=== PATIENT | female | born 1940 | race Asian ===

== ENCOUNTER 2020-01-15 22:44 | Inpatient (IN) | payer MEDICARE, OTHER ==
[~2020-01-15] VITALS: Ht 152.4 cm; Wt 67.6 kg
[2020-01-16] VITALS (8 sets, daily range): BP systolic 90–146; BP diastolic 46–65
[2020-01-16] MEDS ORDERED: NITROGLYCERIN OINT 1GM/INCH UDPKT TD ONE
[2020-01-16] MEDS ORDERED: ASPIRIN 81MG TABLET PO ONE
[2020-01-16 00:01] LABS: HEMATOCRIT. 35.7 % (36.0-48.0); LYMPHOCYTES % 19.6 % (20.0-50.0); MEAN CORPUSCULAR HEMOGLOBIN 29.2 pg (28.0-32.0); MEAN CORPUSCULAR VOLUME 87.4 fL (81.0-99.0); MEAN PLATELET VOLUME 7.3 fl (7.4-10.4); MONOCYTES % 7.5 % (2.0-8.0); NEUTROPHILS % 68.9 % (40.0-76.0); PLATELET 250 x1000/uL (130-400); RED BLOOD CELL COUNT 4.09 mill/uL (4.2-5.4); RED CELL DISTRIBUTION WIDTH 13.9 % (11.6-14.6)
[2020-01-16 00:07] LABS: CHLORIDE 107 mEq/L (98-107)
[2020-01-16] MEDS ORDERED: MAGNESIUM/ALUMINUM HYDROXIDE/SIMETHICONE 30ML UDC PO PRN (06:15)
[2020-01-16] MEDS ORDERED: ONDANSETRON HCL 4MG/2ML INJ IV PRN (06:15)
[2020-01-16] MEDS ORDERED: GUAIFENESIN 200MG/10ML SUGAR FREE UDC PO PRN (06:15)
[2020-01-16] MEDS ORDERED: CLONIDINE 0.1MG TABLET PO PRN (06:15)
[2020-01-16] MEDS ORDERED: DOCUSATE SODIUM 100MG CAPSULE PO PRN (06:15)
[2020-01-16] MEDS ORDERED: ACETAMINOPHEN 325MG TABLET PO PRN (06:15)
[2020-01-16] MEDS: HYDROCODONE/ACETAMINOPHEN 5/325MG TABLET PO PRN ×2 (06:54→20:52)
[2020-01-16] MEDS ORDERED: DEXTROSE 50% WATER 50ML SYRINGE IV PRN (07:00)
[2020-01-16] MEDS: INSULIN LISPRO (HIGH DOSE) 100 UNITS/ML SUBCUT SCH ×4 (08:20→21:16)
[2020-01-16] MEDS ORDERED: ENOXAPARIN 40MG/0.4ML SYR SUBCUT SCH (09:00)
[2020-01-16] MEDS: BLOOD SUGAR DIAGNOSTIC STRIP TEST SCH ×4 (09:00→20:53)
[2020-01-16] MEDS: ENOXAPARIN 30MG/0.3ML SYR SUBCUT SCH (09:00)
[2020-01-16] MEDS: LISINOPRIL 10MG TABLET PO SCH (10:44)
[2020-01-16] MEDS ORDERED: [UNRECOGNIZED DRUG - CODE] MT (11:35)
[2020-01-16] MEDS ORDERED: ATOR40TA70 MT (11:35)
[2020-01-16] MEDS ORDERED: DONE10TA43 PO (11:35)
[2020-01-16] MEDS ORDERED: CYAN50003 MT (11:35)
[2020-01-16] MEDS ORDERED: LOSA100T32 PO (11:35)
[2020-01-16] MEDS ORDERED: NIFE90TA60 PO (11:35)
[2020-01-16] MEDS ORDERED: CHOL200077 MT (11:35)
[2020-01-16] MEDS ORDERED: CITA20SO2 PO (11:35)
[2020-01-16] MEDS ORDERED: ISOS30TA6 PO (11:35)
[2020-01-16] MEDS ORDERED: EMPA10TA PO (11:35)
[2020-01-16] MEDS ORDERED: METO-411 PO (11:35)
[2020-01-16] MEDS ORDERED: ISOS60TA4 PO (11:35)
[2020-01-16] MEDS ORDERED: MIRT15TA6 PO (11:35)
[2020-01-16] MEDS ORDERED: ASPI-1158 PO (11:35)
[2020-01-16] MEDS: ASPIRIN 81MG EC TABLET PO SCH (12:00)
[2020-01-16] MEDS ORDERED: DONEPEZIL HCL 10MG TABLET PO SCH (12:00)
[2020-01-16] MEDS: CITALOPRAM HYDROBROMIDE 10MG TABLET PO SCH (13:11)
[2020-01-16] MEDS ORDERED: REGADENOSON 0.4 MG/5 ML IV SCH (13:15)
[2020-01-16 14:17] LABS: CLARITY URINE CLEAR (CLEAR); COLOR URINE YELLOW (YELLOW); KETONES URINE NEGATIVE (NEGATIVE); LEUKOCYTE ESTERASE URINE NEGATIVE (NEGATIVE); NITRITE URINE NEGATIVE (NEGATIVE); OCCULT BLOOD URINE NEGATIVE (NEGATIVE); PROTEIN URINE NEGATIVE (NEGATIVE); SPECIFIC GRAVITY URINE 1.018 (1.005-1.030); UROBILINOGEN URINE 0.2 E.U./dL (0.2-1.0)
[2020-01-16] MEDS: NITROGLYCERIN OINT 1GM/INCH UDPKT TD SCH ×2 (14:53→22:00)
[2020-01-16 15:02] LABS: *AMPHETAMINES SCREEN URINE NEGATIVE (NEGATIVE); *BARBITURATES SCREEN URINE NEGATIVE (NEGATIVE); *BENZODIAZEPINES SCREEN URINE NEGATIVE (NEGATIVE); *COCAINE SCREEN URINE NEGATIVE (NEGATIVE)
[2020-01-16 15:03] LABS: CANNABINOID URINE SCREEN NEGATIVE (NEGATIVE); METHADONE URINE SCREEN NEGATIVE (NEGATIVE); OPIATES URINE SCREEN PRESUMTIVE POSITIVE (NEGATIVE); PHENCYCLIDINE URINE SCREEN NEGATIVE (NEGATIVE)
[2020-01-16 16:00] LABS: CREATINE KINASE 43 IU/L (26-192)
[2020-01-16 16:01] LABS: CREATINE KINASE MB FRACTION < 1.0 ng/mL (0.5-3.6)
[2020-01-16] MEDS: AMLODIPINE 2.5MG TABLET PO SCH (20:53)
[2020-01-16] MEDS ORDERED: ATORVASTATIN CALCIUM 40MG TABLET PO SCH (21:00)
[2020-01-16] MEDS ORDERED: MIRTAZAPINE 15MG TABLET PO SCH (21:00)
[2020-01-16 23:50] LABS: CREATINE KINASE 40 IU/L (26-192)
[2020-01-16 23:52] LABS: CREATINE KINASE MB FRACTION < 1.0 ng/mL (0.5-3.6)
[2020-01-17] VITALS (9 sets, daily range): BP systolic 107–156; BP diastolic 45–87
[2020-01-17] MEDS: NITROGLYCERIN OINT 1GM/INCH UDPKT TD SCH ×2 (05:06→13:21)
[2020-01-17 06:39] LABS: EOSINOPHILS % 3.6 % (0.0-5.0); HEMOGLOBIN. 11.6 g/dL (12.0-16.0); LYMPHOCYTES % 20.6 % (20.0-50.0); MEAN CORPUSCULAR HEMOGLOBIN 28.9 pg (28.0-32.0); MEAN CORPUSCULAR VOLUME 87.1 fL (81.0-99.0); MEAN PLATELET VOLUME 7.4 fl (7.4-10.4); MONOCYTES % 7.5 % (2.0-8.0); NEUTROPHILS % 67.3 % (40.0-76.0); PLATELET 229 x1000/uL (130-400); RED BLOOD CELL COUNT 4.02 mill/uL (4.2-5.4); RED CELL DISTRIBUTION WIDTH 14.3 % (11.6-14.6)
[2020-01-17 06:47] LABS: CHLORIDE 110 mEq/L (98-107)
[2020-01-17 07:00] LABS: LDL CHOLESTEROL 43 mg/dL (5-100)
[2020-01-17 07:03] LABS: HDL CHOLESTEROL 46 mg/dL (40-59)
[2020-01-17] MEDS: INSULIN LISPRO (HIGH DOSE) 100 UNITS/ML SUBCUT SCH ×2 (07:20→12:20)
[2020-01-17] MEDS: BLOOD SUGAR DIAGNOSTIC STRIP TEST SCH ×2 (07:39→13:00)
[2020-01-17] MEDS: CITALOPRAM HYDROBROMIDE 10MG TABLET PO SCH (08:33)
[2020-01-17] MEDS: ASPIRIN 81MG EC TABLET PO SCH (08:34)
[2020-01-17] MEDS: LISINOPRIL 10MG TABLET PO SCH (08:34)
[2020-01-17] MEDS: AMLODIPINE 2.5MG TABLET PO SCH (08:34)
[2020-01-17] MEDS: ENOXAPARIN 30MG/0.3ML SYR SUBCUT SCH (08:35)
[2020-01-17] MEDS ORDERED: REGADENOSON 0.4 MG/5 ML IV ONE (11:52)
[2020-01-17] MEDS ORDERED: LOSARTAN POTASSIUM 100 MG TABLET PO SCH (12:00)
[2020-01-17] MEDS ORDERED: AMLODIPINE 5MG TABLET PO SCH (21:00)
== END 2020-01-17 15:15 | disposition home or self-care (01) | DRG 206 ==
LOC: ER 22:44 → 3WST 01-16 02:49 → EDBEDREQTM 01-16 02:50 → EDBEDREQDT 01-16 02:50 → EDBEDREQ 01-16 02:50 → ENRESERV 01-16 08:30
PROVIDERS: ADMIT Hospitalist; ATTEND Hospitalist
DX: M94.0 Chondrocostal junction syndrome [Tietze] (principal); N17.9 Acute kidney failure, unspecified; E44.1 Mild protein-calorie malnutrition; R00.1 Bradycardia, unspecified; I10 Essential (primary) hypertension; E78.5 Hyperlipidemia, unspecified; E11.9 Type 2 diabetes mellitus without complications; D72.829 Elevated white blood cell count, unspecified; E78.00 Pure hypercholesterolemia, unspecified; Z79.82 Long term (current) use of aspirin; Z79.899 Other long term (current) drug therapy; Z68.29 Body mass index [BMI] 29.0-29.9, adult
CPT/HCPCS: 36415; 71045; 78452; 80053; 80061; 80305; 81003; 82550; 82553; 82962; 83880; 84484; 85025; 93005; 93017; 93306; 93970; 99285; A9500; J1650; J1815; J2785